=== PATIENT | female | born 1960 | race Caucasian/White ===

== ENCOUNTER → 2020-04-26 | Outpatient (CLI) | payer BC ==
[~2020-04-26] MED LIST: CEFPODOXIME PR200 MG PO; FLEXERIL 10 MG10 MG PO; IBUPROFEN600 MG PO; ROBITUSSIN DM473 ML PO; VIBRAMYCIN100 MG PO; Voltaren Gel 1 % TOP; ZOFRAN ODT 4 MG4 MG SL
== END ==
LOC: KOH-I 11:02
DX: M54.5 Low back pain (principal); Z53.8 Procedure and treatment not carried out for other reasons

== ENCOUNTER 2020-06-10 16:19 | Emergency (ER) | payer BC ==
[~2020-06-10 16:19] MED LIST changes: -CEFPODOXIME PR200 MG PO; -ZOFRAN ODT 4 MG4 MG SL
[2020-06-10 17:28] LABS: HEMOGLOBIN 14.8 gm/dl (12.3-15.3); RED BLOOD COUNT 4.58 M/UL (4.00-5.10)
[2020-06-10] MEDS ORDERED: CEFPODOXIME PR200 MG PO (18:36)
[2020-06-10] MEDS ORDERED: ZOFRAN ODT 4 MG4 MG SL (18:36)
== END 2020-06-10 19:22 | disposition home or self-care (01) ==
LOC: ER1 16:19
PROVIDERS: Student in an Organized Health Care Education/Training Program
DX: N39.0 Urinary tract infection, site not specified (principal); Z90.710 Acquired absence of both cervix and uterus; Z88.5 Allergy status to narcotic agent; Z88.6 Allergy status to analgesic agent
CPT/HCPCS: 36415; 80053; 81001; 85025; 87086; 96365; 99283; J0696